=== PATIENT | male | born 1985 | race Two or more races ===

== ENCOUNTER 2019-04-24 23:06 | Emergency (ER) | payer OTHER ==
[~2019-04-24] VITALS: Ht 198.1 cm; Wt 99.8 kg
--- NOTE | 2019-04-24 23:19 | NUR ---
BIBS FOR C/O R THUMB NUMBNESS RADIATNG TO THE R ARM AND R FACE. STARTED ABOUT 2 PM. NO PMH OR SX. VSS. DENIED ANY TROUBLE SWALLOWING . - H/A, NO FACIAL DROOP. WILL CONT TO MONITOR ,
--- NOTE | 2019-04-24 23:39 | NUR ---
AT THE BED SIDE
--- NOTE | 2019-04-24 23:58 | NUR ---
PT REFUSED TORADOL INJ AT THIS TIME, REPORTED HE IS EXPERIENCING A BAD PAIN NOW AND HE IS MORE WORRIED ABOUT THE NUMBNESS.MD MADE AWARE LIDOCAINE PATCH WAS HELD DUE TO MEDICATION NOT AVAILABLE. MD MADE AWARE
[2019-04-25] MEDS ORDERED: LIDOCAINE 5% (PATCH) 1 EA PATCH TP SCH
[2019-04-25] MEDS ORDERED: KETOROLAC TROMETHAMINE INJ 30 MG/ML VIAL IM ONE
--- NOTE | 2019-04-25 00:31 | NUR ---
BACK FROM CT
--- NOTE | 2019-04-25 01:05 | NUR ---
SITTING ON A CHAIR IN STABL CONDITION. WILL CONT TO MONITOR ,
--- NOTE | 2019-04-25 02:18 | NUR ---
Patient discharged to home in stable condition. Written and verbal after care instructions given. Patient verbalizes understanding of instruction.
[2019-04-25 02:19] VITALS: BP 131/79
== END 2019-04-25 02:20 | disposition home or self-care (01) ==
LOC: ER 23:09
DX: M79.18 Myalgia, other site (principal); F10.10 Alcohol abuse, uncomplicated; Y90.9 Presence of alcohol in blood, level not specified
CPT/HCPCS: 72125-TC